=== PATIENT | male | born 1975 | race American Indian/Alaskan Native ===

== ENCOUNTER 2018-05-22 19:34 | Emergency (ER) | payer OTHER ==
[2018-05-22 20:08] VITALS: BMI 21.9
[2018-05-22 20:09] VITALS: RESP 18; TEMP 98.4; O2SAT 99
--- NOTE | 2018-05-22 20:36 | ED PDOC ---
Arrival/HPI - General Chief Complaint: Lower Extremity Problem/Injury Time Seen by Provider: 05/22/18 20:27 Historian: Patient - History of Present Illness Narrative History of Present Illness (Text): 05/22/18 20:36 Lei Gabriel is a 42 year old male who presents to the Emergency department complaining of right knee pain. Patient states he frequently stands and bends at knee. Patient notes pain is worse with standing. Patient denies any recent trauma/injury, weakness/numbness/tingling in the extremity, decreased range of motion, calf pain, or any other complaints. Symptom Onset: Gradual Symptom Course: Unchanged Activities at Onset: Light Context: Home Past Medical History - Provider Review Nursing Documentation Reviewed: Yes - Infectious Disease Hx of Infectious Diseases: None - Cardiac Hx Cardiac Disorders: No - Pulmonary Hx Respiratory Disorders: Yes Hx Bronchitis: Yes - HEENT Hx HEENT Disorder: No - Renal Hx Renal Disorder: No - Endocrine/Metabolic Hx Endocrine Disorders: No - Hematological/Oncological Hx Blood Disorders: No - Integumentary Hx Dermatological Disorder: No - Musculoskeletal/Rheumatological Hx Musculoskeletal Disorders: No - Gastrointestinal Hx Gastrointestinal Disorders: No - Genitourinary/Gynecological Hx Genitourinary Disorders: No - Psychiatric Hx Psychophysiologic Disorder: No Hx Substance Use: No Family/Social History - Physician Review Nursing Documentation Reviewed: Yes Family/Social History: Unknown Family HX Smoking Status: Light Smoker < 10 Cigarettes Daily Hx Alcohol Use: No Hx Substance Use: No Allergies/Home Meds Allergies/Adverse Reactions: Allergies No Known Allergies Allergy (Verified 05/22/18 20:08) Review of Systems - Physician Review All systems were reviewed & negative as marked: Yes - Review of Systems Constitutional: Normal. absent: Fevers Eyes: Normal ENT: Normal Respiratory: Normal. absent: SOB, Cough Cardiovascular: Normal. absent: Chest Pain Gastrointestinal: Normal. absent: Abdominal Pain, Diarrhea, Nausea, Vomiting Genitourinary Male: Normal. absent: Dysuria, Frequency, Hematuria, Urinary Out put Changes Musculoskeletal: Arthralgias (+right knee pain). absent: Back Pain, Neck Pain Skin: Normal Neurological: Normal Endocrine: Normal Hemo/Lymphatic: Normal Psychiatric: Normal Physical Exam Vital Signs Reviewed: Yes Vital Signs Temp Pulse Resp BP Pulse Ox 05/22/18 20:09 98.4 F 77 18 118/70 99 Temperature: Afebrile Blood Pressure: Normal Pulse: Regular Respiratory Rate: Normal Appearance: Positive for: Well-Appearing, Non-Toxic, Comfortable Pain Distress: None Mental Status: Positive for: Alert and Oriented X 3 - Systems Exam Head: Present: Atraumatic, Normocephalic Pupils: Present: PERRL Extroacular Muscles: Present: EOMI Conjunctiva: Present: Normal Mouth: Present: Moist Mucous Membranes Neck: Present: Normal Range of Motion Lower Extremity: Present: Normal Inspection, NORMAL PULSES, Normal ROM, Neurovascularly Intact, Capillary Refill < 2 s. No: Edema, Cyanosis, Tenderness, Swelling, Erythema, Deformity, Temperature Abnormalties Neurological: Present: GCS=15, CN II-XII Intact, Speech Normal Skin: Present: Warm, Dry, Normal Color. No: Rashes Psychiatric: Present: Alert, Oriented x 3, Normal Insight, Normal Concentration Medical Decision Making ED Course and Treatment: 05/22/18 20:36 Impression: 42 year old male complaining of right knee pain. Plan: -- XR Right Knee -- Reassess and disposition Progress Notes: - RAD Interpretation Narrative RAD Interpretations (Text): 05/23/18 00:58 x ray neg acute process Radiology Orders: 05/22/18 20:36 KNEE RIGHT 2 VIEWS (AP & LAT) [RAD] Stat - Scribe Statement The provider has reviewed the documentation as recorded by the Scribseble Frankel Provider Scribe Attestation: All medical record entries made by the Scribe were at my direction and personally dictated by me. I have reviewed the chart and agree that the record accurately reflects my personal performance of the history, physical exam, medical decision making, and the department course for this patient. I have also personally directed, reviewed, and agree with the discharge instructions and disposition. Disposition/Present on Arrival - Present on Arrival Any Indicators Present on Arrival: No History of DVT/PE: No History of Uncontrolled Diabetes: No Urinary Catheter: No History of Decub. Ulcer: No History Surgical Site Infection Following: None - Disposition Have Diagnosis and Disposition been Completed?: Yes Diagnosis: Knee strain Disposition: HOME/ ROUTINE Disposition Time: 22:15 Condition: GOOD Discharge Instructions (ExitCare): Knee Sprain (DC) Additional Instructions: use knee brace as needed follow up with orthopedics Prescriptions: Naproxen [Naprosyn Tab] 375 mg PO BID #12 tab Referrals: Venkat Patel III, MD [Medical Doctor] - Follow up with primary Penny Engle MD [Primary Care Provider] - Follow up with primary Forms: [employer] (Faroese)
[2018-05-22 22:01] VITALS: BP 116/65; PULSE 73
--- NOTE | 2018-05-23 08:12 | RAD ---
Date of service: 05/22/2018 PROCEDURE: Right Knee Radiographs. HISTORY: fall COMPARISON: None. FINDINGS: BONES: No acute fracture or destructive bony lesion identified. JOINTS: No subluxation or dislocation. Mild medial compartment joint space narrowing, also seen at the patellofemoral compartment. Limited patellofemoral osteophyte development identified. JOINT EFFUSION: Large suprapatellar bursa effusion present. OTHER FINDINGS: None. IMPRESSION: No acute fracture or dislocation right knee. Large suprapatellar bursa effusion identified and [id number] osteoarthritis, bicompartmental.
== END 2018-05-22 22:15 | disposition home or self-care (01) ==
LOC: ED 19:34
DX: S86.911A Strain of unspecified muscle(s) and tendon(s) at lower leg level, right leg, initial encounter (principal); X58.XXXA Exposure to other specified factors, initial encounter; F17.210 Nicotine dependence, cigarettes, uncomplicated

== ENCOUNTER 2018-09-10 16:26 | Emergency (ER) | payer OTHER ==
[2018-09-10 16:54] VITALS: BMI 22.2
[2018-09-10] MEDS ORDERED: Lidocaine 5% Patch TD STA (16:57)
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
[2018-09-10 17:11] VITALS: RESP 18; TEMP 97.8; O2SAT 100
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
[2018-09-10 19:47] VITALS: BP 105/72; PULSE 68
== END 2018-09-10 20:13 | disposition home or self-care (01) ==
LOC: ED 16:26
DX: M54.2 Cervicalgia (principal); S16.1XXA Strain of muscle, fascia and tendon at neck level, initial encounter; V79.9XXA Bus occupant (driver) (passenger) injured in unspecified traffic accident, initial encounter; F17.210 Nicotine dependence, cigarettes, uncomplicated